=== PATIENT | female | born 1955 | race Caucasian/White ===

== ENCOUNTER 2021-03-03 01:17 | Outpatient (CLI) | payer OTHER, SELFPAY ==
--- NOTE | 2021-03-03 | DI.MAMMO_ITS ---
Exam(s) MAMMO SCREENING EXAM: MAMMO SCREENING CLINICAL HISTORY: SCREENING, Z12.31. TECHNIQUE: Bilateral full field digital CC and MLO mammographic images were obtained with 3D tomosyn thesis and utilizing computer aided detection (CAD). COMPARISON: None FINDINGS: There are no CAD designations In the left breast 3 small nodular densities located laterally, the largest of these measuring 6 by 5 .5 millimeter and located 10 cm from the nipple. In the right breast there is asymmetric density noted anteriorly measuring approximately 3 by 2 cm . Slightly lobulated. Not calcified. There is no significant architectural distortion nor skin thickening-retraction. IMPRESSION: 1. There is a lobulated 3 x 2 cm mass in the right breast. Spot compression and ultrasound recommend ed 2. Smaller nodules are noted laterally in the opposite-left breast. The should also be studied with ultrasound. BI-RADS Category 0 - Assessment Incomplete: Need additional imaging evaluation Breast Density - Category B - Scattered areas of fibroglandular density Breast density Category C or D implies that the patient has dense breast tissue. Dense breast tissue can make it harder to find cancer on a mammogram. Dense breast tissue is also associated with an incr eased risk of breast cancer. This information about the result of the mammogram report was provided to the patient to raise their awareness. Use this report when you speak with the patient about their risks for breast cancer, which includes their family history. At that time, you may recommend additional screening tests (Ultrasoun d or MRI) as these tests may add significant information. A negative radiographic report should not delay biopsy if a dominant or clinically suspicious mass is present. Up to ten percent of cancers are not identified on mammography. A negative report may reinforce clinical impression. Adenosis and dense breasts may obscure an underlying neoplasm. False positive reports average 6 to 10%. Patient will receive a letter notifying them of these results.
== END 2021-03-03 01:37 ==
PROVIDERS: Visit Provider Internal Medicine
DX: Z12.31 Encounter for screening mammogram for malignant neoplasm of breast (principal); R92.8 Other abnormal and inconclusive findings on diagnostic imaging of breast
CPT/HCPCS: 77063; 77067

== ENCOUNTER 2021-03-23 01:01 | Outpatient (CLI) | payer OTHER, SELFPAY ==
--- NOTE | 2021-03-23 10:13 | DI.MAMMO_ITS ---
Exam(s) MG MAMMO SCREEN CALL BACK UNI US BREAST RT LIMITED EXAM: US BREAST RT LIMITED CLINICAL HISTORY: ASYMMETRIC DENSITY RT BREAST TECHNIQUE: Ultrasound performed using standard protocol. COMPARISON: No exams were available for comparison FINDINGS: Spot compression views of the right breast and right breast ultrasound are interpreted in conjunction . Recent mammogram with no prior mammograms available showed retroareolar right breast mass. Spot c ompression view confirms that this is a well circumscribed elongated ovoid mass measuring up to about 4.5 cm in greatest diameter. Ultrasound examination confirms a retroareolar finding, which appears to be a group of large cysts an d/or dilated ducts. Most of these are anechoic, however there is an approximately 2 cm in greatest d iameter avascular mass with low-level echogenicity, this has an appearance consistent with internal h emorrhage. I suppose the possibly that this represents a solid mass cannot be entirely excluded. Ac cordingly, I would recommend that aspiration of this presumed hemorrhagic cyst be performed with ultr asound guidance. No other significant ultrasound findings. IMPRESSION: Aspiration of likely hemorrhagic cyst or dilated duct of the retroareolar portion of the right breast recommended as described above. BI-RADS Cat 4 - Suspicious Abnormality: Biopsy should be considered Breast Density - Category B - Scattered areas of fibroglandular density DATA REPOSITORY:
--- NOTE | 2021-03-23 10:30 | DI.US_ITS ---
Exam(s) US BREAST LT LIMITED EXAM: US BREAST LT LIMITED CLINICAL HISTORY: SMALLER NODULE LATERALLY LT BREAST TECHNIQUE: Ultrasound performed using standard protocol. COMPARISON: No exams were available for comparison FINDINGS: Left breast ultrasound was performed to evaluate well-circumscribed nodule of the upper outer quadran t of the left breast. There is a 7 millimeter in diameter lymph node with normal morphology correspo nding in location to the mammographically identified nodule. No other mass seen. IMPRESSION: The left breast nodule is a normal-appearing lymph node. Routine annual mammography recommended. DATA REPOSITORY:
== END 2021-03-23 01:21 ==
PROVIDERS: Visit Provider Internal Medicine
DX: R92.8 Other abnormal and inconclusive findings on diagnostic imaging of breast (principal)
CPT/HCPCS: 76642; 77063; 77067

== ENCOUNTER → 2022-03-10 00:19 | Outpatient (CLI) | payer MEDICARE, SELFPAY ==
--- NOTE | 2022-03-10 | DI.MAMMO_ITS ---
Exam(s) MAMMO SCREENING EXAM: MAMMO SCREENING CLINICAL HISTORY: SCREENING, Z12.39. TECHNIQUE: Bilateral full field digital CC and MLO mammographic images were obtained with 3D tomosyn thesis and utilizing computer aided detection (CAD). COMPARISON: Prior mammogram performed February 2021 was reviewed as well as the diagnostic mammogram and ultrasound of 03/23/2021. FINDINGS: There are no new significant radiograph findings in left breast. Previously described small nodular densities are unchanged and shown to be benign lymph nodes on prior ultrasound. In the right breast the previously described retroareolar region 3 x 2 cm mass is again noted. This was shown to be a combination of cysts and another non purely cystic finding measuring 2 centimeter i n greatest diameter which is either mass or hemorrhagic cyst. There are no malignant-appearing micro calcification groups is region or elsewhere in either breast. There is no significant architectural distortion nor skin thickening-retraction. IMPRESSION: 1. No radiographic evidence of malignancy in left breast. 2. Right breast retroareolar region mass again noted measuring approximately 3 x 2 cm. I note that o n the 03/23/2021 report ultrasound-guided aspiration biopsy of the more solid-appearing retroareolar region finding was recommended. If this has been performed and shown to be benign than this can be f ollowed conservatively. Otherwise ultrasound-guided FNA aspiration is again recommended. In the meantime I recommend repeat right breast ultrasound. BI-RADS Category 0 - Assessment Incomplete: Need additional imaging evaluation, specifically repeat u ltrasound of the right breast. Breast Density - Category B - Scattered areas of fibroglandular density Breast density Category C or D implies that the patient has dense breast tissue. Dense breast tissue can make it harder to find cancer on a mammogram. Dense breast tissue is also associated with an incr eased risk of breast cancer. This information about the result of the mammogram report was provided to the patient to raise their awareness. Use this report when you speak with the patient about their risks for breast cancer, which includes their family history. At that time, you may recommend additional screening tests (Ultrasoun d or MRI) as these tests may add significant information. A negative radiographic report should not delay biopsy if a dominant or clinically suspicious mass is present. Up to ten percent of cancers are not identified on mammography. A negative report may reinforce clinical impression. Adenosis and dense breasts may obscure an underlying neoplasm. False positive reports average 6 to 10%. Patient will receive a letter notifying them of these results.
== END ==
PROVIDERS: Visit Provider Internal Medicine
DX: Z12.31 Encounter for screening mammogram for malignant neoplasm of breast (principal); R92.8 Other abnormal and inconclusive findings on diagnostic imaging of breast
CPT/HCPCS: 77063; 77067

== ENCOUNTER 2022-03-10 14:04 | Outpatient (REF) | payer MEDICARE, SELFPAY ==
--- NOTE | 2022-03-10 14:00 | PAPFT_PTH ---
PATIENT: Nneka Conrad LOC: [facility]#:[id number] AGE/SX: 67/F ROOM: RE03/10/[address]: Corinna Farmer : 1955 BED: DIS: 03/10/2022 SPEC #: [id number] RECD: 03/10/22 16:03 STATUS: PEACE RETom #: [id number] BARBARA: 03/10/22 14:[address]: Corinna Farmer DEPT: PENDING SALE TO [facility] Cytology RECD BY: Mesha Connolly Tissues: 1 - CX/ENDOCX FOR PAP SMEARS Procedures: PAP THIN PREP/UVM Screening HPV DNA PROBE Comments: [id number]
== END 2022-03-10 14:05 | disposition home or self-care (01) ==
LOC: LBN 14:04
PROVIDERS: Visit Provider Obstetrics & Gynecology Gynecology
DX: Z11.51 Encounter for screening for human papillomavirus (HPV) (principal); Z01.419 Encounter for gynecological examination (general) (routine) without abnormal findings
CPT/HCPCS: 88142; 87624

== ENCOUNTER → 2022-03-16 02:33 | Outpatient (CLI) | payer MEDICARE, SELFPAY ==
--- NOTE | 2022-03-16 10:15 | DI.US_ITS ---
Exam(s) US BREAST RT LIMITED EXAM: US BREAST RT LIMITED CLINICAL HISTORY: F/U MAMMO, RT BREAST MASS, ? CYST OR MASS, TECHNIQUE: Ultrasound right breast performed using standard protocol. COMPARISON: US US BREAST RT LIMITED from 03/23/2021 US US BREAST LIMITED RIGHT from 07/28/2021 FINDINGS: There again seen multiple cystic structures in the retroareolar region of the right breast. There ar e grossly unchanged compared to the outside ultrasound dated 07/28/2021. No suspicious solid masses a re seen. IMPRESSION: 1. No change in appearance of the retroareolar cysts cysts compared to July 28. 2. A six-month follow-up ultrasound is recommended to document stability. 3. Findings were discussed with the patient on the date of the examination. BI-RADS Category 3 - 6 month - Probably Benign Finding: Recommend follow-up imaging in 6 months DATA REPOSITORY:
== END ==
PROVIDERS: Visit Provider Internal Medicine
DX: R92.8 Other abnormal and inconclusive findings on diagnostic imaging of breast (principal)
CPT/HCPCS: 76642

== ENCOUNTER 2022-10-05 01:36 | Outpatient (CLI) | payer MEDICARE, SELFPAY ==
--- NOTE | 2022-10-05 | DI.MAMMO_ITS ---
Exam(s) MG MAMMO DIAGNOSTIC UNI US BREAST RT COMPLETE EXAM: MG MAMMO DIAGNOSTIC UNI-RIGHT AND COMPLETE RIGHT BREAST ULTRASOUND CLINICAL HISTORY: DIAGNOSTIC 6 MO F/U, F/U MAMMO, R02.8,RT BREAST MASS. TECHNIQUE: Both CC and MLO mammographic images were obtained with 3D tomosynthesis technique and uti lizing computer aided detection (CAD). Also performed complete ultrasound examination of the right breast including all 4 quadrants, the ret roareolar region, and the right axilla. COMPARISON: Prior mammograms were reviewed, the most recent being 03/10/2022. Prior ultrasounds were reviewed. FINDINGS: DIAGNOSTIC RIGHT BREAST MAMMOGRAM: The previously described noncalcified well-defined lobulated findi ngs in the retroareolar region remain stable. No new spiculated masses nor malignant-appearing micro calcification the right breast. No new architectural distortion or skin thickening-traction. COMPLETE RIGHT BREAST ULTRASOUND: Prominent retroareolar region cystic structures and ducts are again noted, these devoid of any solid components. In addition, the previously present inspissated material in 1 of these cystic structures seen on the ultrasound of 03/23/2021 no longer seen. The only new finding on the ultrasound is a small benign microcyst at the 10 o'clock position measuri ng 4 mm. No new solid lesions seen in the right breast Scanning of the right axilla is negative for adenopathy. IMPRESSION: 1. Stable benign-appearing mammographic and ultrasound findings in the retroareolar region of the rig ht breast. 2. Patient informs us that she underwent outside consultation at [facility] and was gasper d that she did not require biopsy of this finding. Appropriate follow-up is to keep this patient on her yearly mammogram schedule, this implying the nex t bilateral mammogram would be in 6 months, with earlier imaging if a self detected breast change is noted.. The patient was informed of the findings and follow-up recommendations prior to leaving the [facility] t today. BI-RADS Category 3 - 6 month - Probably Benign Finding: Recommend follow-up mammography in 6 months Breast Density - Category B - Scattered areas of fibroglandular density Breast density Category C or D implies that the patient has dense breast tissue. Dense breast tissue can make it harder to find cancer on a mammogram. Dense breast tissue is also associated with an incr eased risk of breast cancer. This information about the result of the mammogram report was provided to the patient to raise their awareness. Use this report when you speak with the patient about their risks for breast cancer, which includes their family history. At that time, you may recommend additional screening tests (Ultrasoun d or MRI) as these tests may add significant information. A negative radiographic report should not delay biopsy if a dominant or clinically suspicious mass is present. Up to ten percent of cancers are not identified on mammography. A negative report may reinforce clinical impression. Adenosis and dense breasts may obscure an underlying neoplasm. False positive reports average 6 to 10%. Patient will receive a letter notifying them of these results.
== END 2022-10-05 01:56 ==
PROVIDERS: Visit Provider Internal Medicine
DX: Z12.31 Encounter for screening mammogram for malignant neoplasm of breast (principal); R92.8 Other abnormal and inconclusive findings on diagnostic imaging of breast
CPT/HCPCS: 76642; 77061; 77065; G0279

== ENCOUNTER → 2023-04-05 01:03 | Outpatient (CLI) | payer MEDICARE, SELFPAY ==
--- NOTE | 2023-04-05 13:01 | DI.MAMMO_ITS ---
Exam(s) MAMMO SCREENING EXAM: MAMMO SCREENING CLINICAL HISTORY: Screening Z12.39. TECHNIQUE: Bilateral full field digital CC and MLO mammographic images were obtained with 3D tomosyn thesis and utilizing computer aided detection (CAD). COMPARISON: Prior mammograms were reviewed. Prior right breast ultrasound also reviewed. This patient underwent outside consultation at [facility] prior to October 2022 and was informed that she does not require right breast biopsy. FINDINGS: No new left breast findings. Previously described small benign-appearing lymph nodes in left breast are unchanged. In the right breast the previously described retroareolar region density remains stable and was purel y cystic-anechoic on ultrasound examination of 10/05/2022. There are no new spiculated masses nor malignant appearing microcalcification groups. Small benign-appearing nodule towards the upper outer quadrant is also unchanged from prior mammogram s. There is no significant architectural distortion nor skin thickening-retraction. IMPRESSION: No radiographic evidence of malignancy. Stable benign-appearing findings. BI-RADS Category 2 - Benign Findings Breast Density - Category B - Scattered areas of fibroglandular density Breast density Category C or D implies that the patient has dense breast tissue. Dense breast tissue can make it harder to find cancer on a mammogram. Dense breast tissue is also associated with an incr eased risk of breast cancer. This information about the result of the mammogram report was provided to the patient to raise their awareness. Use this report when you speak with the patient about their risks for breast cancer, which includes their family history. At that time, you may recommend additional screening tests (Ultrasoun d or MRI) as these tests may add significant information. A negative radiographic report should not delay biopsy if a dominant or clinically suspicious mass is present. Up to ten percent of cancers are not identified on mammography. A negative report may reinforce clinical impression. Adenosis and dense breasts may obscure an underlying neoplasm. False positive reports average 6 to 10%. Patient will receive a letter notifying them of these results.
== END ==
PROVIDERS: Visit Provider Internal Medicine
DX: Z12.31 Encounter for screening mammogram for malignant neoplasm of breast (principal)
CPT/HCPCS: 77063; 77067

== ENCOUNTER 2024-04-18 00:40 | Outpatient (CLI) | payer MEDICARE, SELFPAY ==
--- NOTE | 2024-04-18 15:29 | DI.MAMMO_ITS ---
Exam(s) MAMMO SCREENING EXAM: MAMMO SCREENING CLINICAL HISTORY: screening. TECHNIQUE: Bilateral full field digital CC and MLO mammographic images were obtained with 3D tomosyn thesis and utilizing computer aided detection (CAD). COMPARISON: Prior mammograms were reviewed. Prior ultrasounds were reviewed. FINDINGS: There has been no significant change in the appearance and distribution of the fibroglandular tissue. Benign-appearing small nodular density upper-outer quadrant left breast remain unchanged from prior s tudies. No new significant left breast findings. The right breast the previously described asymmetric densities-nodules anteriorly are stable and also slightly decreased in size. There are no new spiculated masses nor new malignant appearing microcalcification groups. There is no significant architectural distortion nor skin thickening-retraction. IMPRESSION: No radiographic evidence of malignancy. Stable benign appearing findings. BI-RADS Category 2 - Benign Findings Breast Density - Category B - Scattered areas of fibroglandular density Breast density Category C or D implies that the patient has dense breast tissue. Dense breast tissue can make it harder to find cancer on a mammogram. Dense breast tissue is also associated with an incr eased risk of breast cancer. This information about the result of the mammogram report was provided to the patient to raise their awareness. Use this report when you speak with the patient about their risks for breast cancer, which includes their family history. At that time, you may recommend additional screening tests (Ultrasoun d or MRI) as these tests may add significant information. A negative radiographic report should not delay biopsy if a dominant or clinically suspicious mass is present. Up to ten percent of cancers are not identified on mammography. A negative report may reinforce clinical impression. Adenosis and dense breasts may obscure an underlying neoplasm. False positive reports average 6 to 10%. Patient will receive a letter notifying them of these results.
== END 2024-04-18 01:00 ==
LOC: DI 00:40
PROVIDERS: Visit Provider Obstetrics & Gynecology Gynecology
DX: Z12.31 Encounter for screening mammogram for malignant neoplasm of breast (principal); R92.323 Mammographic fibroglandular density, bilateral breasts; D24.2 Benign neoplasm of left breast
CPT/HCPCS: 77063; 77067

== ENCOUNTER 2025-04-09 11:35 | Outpatient (REF) | payer MEDICARE, SELFPAY | END 2025-04-09 11:36 | disposition home or self-care (01) | LOC: LBN 11:35 | PROVIDERS: PCP Internal Medicine; Visit Provider Obstetrics & Gynecology | DX: Z12.4 Encounter for screening for malignant neoplasm of cervix (principal) | CPT/HCPCS: 88142; 87624 ==

== ENCOUNTER → 2025-05-05 11:06 | Outpatient (CLI) | payer MEDICARE, SELFPAY ==
--- NOTE | 2025-05-05 11:40 | DI.MAMMO_ITS ---
Exam(s) MAMMO SCREENING EXAM: MAMMO SCREENING CLINICAL HISTORY: screening,z12.39 TECHNIQUE: Mammograms were interpreted according to the usual protocol including computer analysis with CAD system, tomosynthesis and C-view imaging. COMPARISON: 2020 through 2023 FINDINGS: The breasts are composed of scattered fibroglandular densities, Breast Density category B. No suspicious masses or suspicious microcalcifications are seen. There is decreased prominence of areas of nodularity in the subareolar region of the right breast. No skin thickening or abnormal axillary lymph nodes are seen. There has been no significant change from prior exams. IMPRESSION: BI-RADS Category 2 - Benign Findings Yearly screening mammography is recommended. Breast Density - Category B - There are scattered areas of fibroglandular density. Breast density Category C or D implies that the patient has dense breast tissue. Dense breast tissue can make it harder to find cancer on a mammogram. Dense breast tissue is also associated with an increased risk of breast cancer. This information about the result of the mammogram report was provided to the patient to raise their awareness. Use this report when you speak with the patient about their risks for breast cancer, which includes their family history. At that time, you may recommend additional screening tests (Ultrasound or MRI) as these tests may add significant information. A negative radiographic report should not delay biopsy if a dominant or clinically suspicious mass is present. Up to ten percent of cancers are not identified on mammography. A negative report may reinforce clinical impression. Adenosis and dense breasts may obscure an underlying neoplasm. False positive reports average 6 to 10%. Patient will receive a letter notifying them of these results.
== END ==
LOC: DI 11:06
PROVIDERS: PCP Internal Medicine; Visit Provider Obstetrics & Gynecology
DX: Z12.31 Encounter for screening mammogram for malignant neoplasm of breast (principal); R92.323 Mammographic fibroglandular density, bilateral breasts
CPT/HCPCS: 77063; 77067